=== PATIENT | male | born 1975 | race Caucasian/White ===

== ENCOUNTER → 2017-05-14 | Outpatient (CLI) | payer BC ==
--- NOTE | 2017-05-14 07:49 | DIAGNOSTIC IMAGING REPORT ---
SOFT TISS HEAD/NECK-THYROID CLINICAL HISTORY: 42 years-old Male with NECK ABSCESS. Acute neck pain COMPARISON: None available TECHNIQUE: Multiple real time sonographic images of the right neck were obtained accessing aguliar scale appearance and color doppler flow. FINDINGS: Soft tissue edema seen within the right neck at the area of concern with a focal irregular complex parallel orientation subcutaneous hypoechoic collection measuring 1.9 x 0.6 x 1.2 cm at the area of palpable concern. Mild increased vascularity and increased echogenicity is seen within the surrounding subcutaneous fat. IMPRESSION: Soft tissue edema with complex hypoechoic 1.9 cm collection at the area of concern suspicious for small abscess. The above report was generated using voice recognition software. It may contain grammatical, syntax or spelling errors. Electronically signed by: Tenzin Madera M.D. 05/14/2017 7:47 AM Dictated Date/Time: 05/14/2017 7:45 AM
== END | disposition home or self-care (01) ==
LOC: C.ULTR 07:19
PROVIDERS: ATTEND Family Medicine
DX: L02.11 Cutaneous abscess of neck (principal)

== ENCOUNTER → 2017-05-26 | Outpatient (CLI) | payer BC ==
[~2017-05-26] MED LIST: HYDR-5688 PO
--- NOTE | 2017-05-26 12:11 | DIAGNOSTIC IMAGING REPORT ---
ULTRASOUND-GUIDED FINE-NEEDLE ASPIRATION THYROID CLINICAL HISTORY: Persistent subacute hypoechoic nodule of the right neck. COMPARISON STUDY: Ultrasound of the neck 05/14/2017. PROCEDURE: The risks, benefits, and alternatives to the procedure were discussed with the patient. Written informed consent was obtained. The patient was placed supine in ultrasound, and the 1.9 cm nodule in the right posterior neck was localized by ultrasound and selected for fine needle aspiration. The right neck was prepped and draped in the usual sterile fashion. The nodule was aspirated under ultrasound guidance with 2 passes utilizing 25-gauge needles. A minimal amount of purulent material was aspirated from the lesion. Specimens were reviewed by the pathologist in real-time and deemed adequate for diagnosis. The patient tolerated the procedure well and left the department in satisfactory condition. IMPRESSION: Completed fine-needle aspiration of a hypoechoic right posterior neck lesion as above. The above report was generated using voice recognition software. It may contain grammatical, syntax or spelling errors. Electronically signed by: Tenzin Madera M.D. 05/26/2017 12:09 PM Dictated Date/Time: 05/26/2017 12:07 PM
== END | disposition home or self-care (01) ==
LOC: C.ULTR 10:42
PROVIDERS: ATTEND Otolaryngology
DX: L92.3 Foreign body granuloma of the skin and subcutaneous tissue (principal); E04.1 Nontoxic single thyroid nodule; M79.9 Soft tissue disorder, unspecified